=== PATIENT | male | born 2000 | race Caucasian/White ===

== ENCOUNTER 2022-11-26 22:08 | Emergency (ER) | payer BC, SELFPAY ==
[2022-11-26 22:21] VITALS: BP 132/78; PULSE 66; RESP 18; TEMP 36.7; O2SAT 98; BMI 30.2
[2022-11-26 23:45] VITALS: BP 143/79; PULSE 61; RESP 16; O2SAT 97
[2022-11-27] MEDS: neomycin-poly-dex Op 5 mL Btl 2 DROP EYE-LEFT (00:38)
[2022-11-27] MEDS: fluorescein 1 mg Strip EYE-LEFT (00:38)
[2022-11-27] MEDS: tetracaine 0.5% Op Soln 4 mL Btl 1 DROP EYE-LEFT (00:38)
--- NOTE | 2022-11-27 00:38 | ED_ITS ---
HPI - Eye Problem General: Chief complaint: Eye Problems Stated complaint: Left eye Time Seen by Provider: 11/26/22 23:48 History of Present Illness: 22-year-old male patient was working on his car this morning when he got a piece of metal in his left eye. Patient reports he was under it and it fell into his eye. Patient appears nontoxic. Patient appears in no acute distress. Associated symptoms: Reports neck pain Review of Systems General: Reports: 10 or more systems reviewed and unremarkable except in HPI and below Eyes: Reports: eye discomfort and eye redness Musc: Reports: neck pain Physical Exam Const: COMMON NORMALS: alert HENMT: COMMON NORMALS: normocephalic HEAD & SCALP: normocephalic Eye: CORNEA: Yes fluorescein used EYE IMAGES: 1. Less than 1 mm speck probable rust Chest: COMMONS NORMALS: normal inspection of the chest and normal palpation of entire chest wall Resp: COMMON NORMALS: normal respiratory effort Cardio: COMMON NORMALS: regular rate and regular rhythm RATE: regular rate RHYTHM: regular rhythm Extremity: COMMON NORMALS: normal to inspection Neuro: SENSORIUM/ORIENTATION: Yes alert Skin: COMMON NORMALS: turgor normal GENERAL SKIN EXAM: turgor normal Procedures FB Removal Eye Location: eye (L) Topical anesthetic used: tetracaine Foreign body: metal Evidence of corneal penetration: No Technique: needle Procedure performed under: direct visualization with magnification Post-procedure medication: ophthalmic antibiotic Patient tolerated procedure: well Course Vital Signs: Vital signs: Vital Signs Temperature 98.0 F 11/26/22 22:21 Pulse Rate 61 11/27/22 00:39 Respiratory Rate 16 11/27/22 00:39 Blood Pressure 135/90 11/27/22 00:39 Pulse Oximetry 98 11/27/22 00:39 Oxygen Delivery Me thod Room Air, Nasal C annula 11/26/22 22:21 MDM - Eye Problem Medical Decision Making 22-year-old male patient comes in today with metal in his left eye. On exam patient has a small speck of metal noted in his left eye around the 8 o'clock position at the edge of the pupil. No other abnormality was noted on eye exam. Differential diagnosis includes but not limited to corneal abrasion, foreign body cornea, corneal penetration. No signs of severe injury was noted. Use of a 22-gauge needle was able to remove the speck of metal without difficulty. Patient tolerated well. Recommended follow-up with eye health care marketing manager in 2 to 3 days for recheck. Patient reported understanding of care plan and need for follow-up or return to the ER. Discharge Plan Discharge Patient Disposition: Home Clinical Impression: Foreign body, eye Qualifiers: Encounter type: initial encounter Laterality: left Qualified Code(s): T15.92XA - Foreign body on external eye, part unspecified, left eye, initial encounter Condition: Stable Discharge Orders: Discharge ED (Routine); Ordered 11/27/22 Ordered By: Booker Chapin Discharge Diet: Usual diet Discharge Activity: Increase activity as tolerated Patient Instructions: Foreign Body - Eye Activity Restrictions/Additional Instructions: Use antibiotic eyedrops 4 times a day for the next 7 days. Follow-up with primary care as needed. Follow-up with eye health care marketing manager in 3 days for recheck. Return to ED for new concerns. 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
[2022-11-27 00:39] VITALS: BP 135/90; PULSE 61; RESP 16; O2SAT 98
[2022-11-27] MEDS: eye irrigation 30 mL Btl EYE-LEFT (00:39)
--- NOTE | 2022-12-02 15:17 | DCPLANNER ---
software implementation project manager called patient due to no primary care physician - declines at this time.
== END 2022-11-27 01:05 | disposition home or self-care (01) ==
PROVIDERS: Emergency Provider Nurse Practitioner Family
DX: T15.92XA Foreign body on external eye, part unspecified, left eye, initial encounter (principal); X58.XXXA Exposure to other specified factors, initial encounter
CPT/HCPCS: 65205; 99283